=== PATIENT | male | born 1995 | race Caucasian/White ===

== ENCOUNTER 2018-05-12 06:07 | Day surgery (SDC) | payer OTHER ==
[2018-05-11 08:57] VITALS: BMI 24.4
--- NOTE | 2018-05-11 13:37 | HP ---
DATE OF ADMISSION: 05/12/2018 DATE OF SURGERY: 05/12/2018 ADMISSION DIAGNOSIS: Nasal septal deviation, inferior turbinate hypertrophy, chronic sinusitis. HISTORY OF PRESENT ILLNESS: This 23-year-old male has had longstanding nasal and sinus symptoms. He has congestion, drainage, sinus pain and pressure, and has been treated with antibiotics as well as mucolytics and topical medications. He has intermittent yellow drainage, and his headache feels like he was hit over the head with a pipe. Cheek swelling has also been reported. He reports a history of allergies as well. Examination demonstrates deviation of the septum to the left. There is inferior turbinate hypertrophy. CT scan demonstrates chronic sinusitis and deviation of the septum as well as turbinate hypertrophy. He is now admitted for surgery. PAST MEDICAL HISTORY: Primary medical doctor is Dr. Raoul Paniagua. The patient is presently taking fluticasone. He has had previous lower back procedure and underwent general anesthesia without reported problems. ALLERGIES: There are no allergies to medications known. BLEEDING HISTORY: Negative. FAMILY HISTORY: Negative for bleeding or anesthesia problems. REVIEW OF SYSTEMS: Patient reports loud snoring and chronic mouth breathing, and his sense of smell is reduced most of the time. He gets intermittent headaches, and his nose remains dry, stuffy, and uncomfortable. PHYSICAL EXAMINATION: General: Patient is a well-developed male in no distress. HEENT: Head is normal. Eyes are clear. Ears are unremarkable. The nose has deviation of the nasal septum which is somewhat S shaped. Turbinates are enlarged 2+ bilaterally. Middle turbinates are edematous. Middle meatuses are narrowed. CT scan of the paranasal sinuses performed at [facility] on April 29, 2018, shows deviation of the septum part to the right side and part to the left with a spur impacting the left inferior turbinate. Lrew-uk-[id number] hypertrophy is seen in the inferior turbinates. There is mucosal thickening in the maxillary ostia and ethmoid infundibula bilaterally. There is also mucoperiosteal thickening in the ethmoid air cells. There is as well some thickening in the left sphenoethmoid recess and the right. IMPRESSION: 1. Chronic sinusitis. 2. Deviated septum. 3. Inferior turbinate hypertrophy. PLAN: Nasal septoplasty, submucous resection of inferior turbinates, endoscopic sinus surgery to address ethmoid and maxillary sinuses. INFORMED CONSENT: Patient understands the indications, alternatives, and major risks and benefits of proposed surgery. Potential complications including, but not limited to, anesthesia, bleeding, infection, recurrence, hole in septum, changes in the sense of smell, numbness, eye injury, and brain injury were discussed in detail. He understands and accepts these risks and wants to proceed with surgery. Questions were answered fully. CARA PIEDRA M.D. [id number]
[2018-05-12] MEDS ORDERED: COCAINE HCL 4% TOPICAL SOLUTION 4 ML BOTTLE TP ONE ×2 (07:44→08:31)
[2018-05-12] MEDS ORDERED: LIDOCAINE 1%-EPI 1:100,000 30 ML MDV IJ ONE (07:45)
[2018-05-12] MEDS ORDERED: BACITRACIN 15 GM TUBE TOPICAL OINTMENT ONE (07:49)
--- NOTE | 2018-05-12 07:54 | HP ---
History & Physical Update - History History: No Change - Physical Physical: No Change - Assessment Assessment: No Change - Plan Plan: No Change
[2018-05-12] MEDS ORDERED: ROCURONIUM BROMIDE 50 MG/5 ML VIAL ONE (07:55)
[2018-05-12] MEDS ORDERED: MIDAZOLAM HCL 2 MG/2 ML SINGLE DOSE VIAL ONE (07:55)
[2018-05-12] MEDS ORDERED: DEXAMETHASONE SOD PHOSPHATE 4 MG/1 ML VIAL ONE ×2 (07:55→10:24)
[2018-05-12] MEDS ORDERED: PROPOFOL 20 ML ONE ×2 (07:55)
[2018-05-12] MEDS ORDERED: LIDOCAINE 1%/EPI 1:100000 (20 ML MULTI DOSE VIAL) IJ ONE ×3 (08:30→10:00)
[2018-05-12] MEDS ORDERED: DESFLURANE GAS 240 ML BOTTLE IH ONE (09:21)
[2018-05-12] MEDS ORDERED: oxyCODONE HCL 5 MG TABLET PO PRN (10:26)
[2018-05-12] MEDS ORDERED: ONDANSETRON 4 MG/2 ML VIAL IVPUSH PRN (10:26)
[2018-05-12] MEDS ORDERED: LACTATED RINGERS SOLUTION 1,000 ML IV SCH (10:30)
--- NOTE | 2018-05-12 10:38 | OP ---
Operative Note - Note: Operative Date: 05/12/18 ([id number]) Pre-Operative Diagnosis: chronic sinusitis, nasal septal deviation, inferior turbinate hypertrophy Operation: bilateral endoscopic ethmoidectomy, anterior and posterior, bilateral endoscopic maxillary antrostomy, partial resection bilateral middle turbinates, nasal septoplasty, submucus resection of bilateral inferior turbinates, image guidance Findings: chronic sinusitis, middle turbinate hypertrophy, inferior turbinate hypertrophy , septal deviation to left bony and cartilaginous Implants: none Post-Operative Diagnosis: Same as Pre-op Surgeon: Frantz Jovel Anesthesiologist/MACHINE APPLICATOR CEMENTER: Amparo Sam Anesthesia: General Specimens Removed: 1. left middle turbinate and ethmoid tissue, 2. right middle turbinate and ethmoid tissue, 3 nasal septal tissue 4 inferior turbinate tissue Estimated Blood Loss (mls): 40 Drains & Tubes with Location: none Blood Volume Replaced (mls): 0 Fluid Volume Replaced (mls): 1,000 Operative Report Dictated: Yes
[2018-05-12] MEDS ORDERED: ACETAMINOPHEN INJECTION 100 ML IVPB ONE (10:52)
[2018-05-12] MEDS ORDERED: ACETAMINOPHEN 1000 MG/100 ML VIAL (NON FORMULARY) IVPB ONE ×2 (11:15)
--- NOTE | 2018-05-12 12:08 | OP ---
DATE OF OPERATION: 05/12/2018 PREOPERATIVE DIAGNOSES: Chronic sinusitis, nasal septal deviation, inferior turbinate hypertrophy. POSTOPERATIVE DIAGNOSES: Chronic sinusitis, nasal septal deviation, inferior turbinate hypertrophy, middle turbinate hypertrophy. PROCEDURE: Bilateral endoscopic ethmoidectomy, anterior and posterior; bilateral endoscopic maxillary antrostomy; partial resection of bilateral middle turbinates; nasal septoplasty; submucosal resection of bilateral inferior turbinates; imaging guidance. SURGEON: Frantz Jovel MD ANESTHESIOLOGIST: Amparo Pablo CRNA ANESTHESIA: General via endotracheal tube. INDICATIONS: This 23-year-old male has longstanding nasal and sinus symptoms with obstruction, discomfort, mouth breathing, snoring. He has failed to improve with appropriate medical therapy. Examination demonstrates significant deviation of the septum and inferior turbinate hypertrophy. CT scan also shows middle turbinate hypertrophy with partial jonathan bullosa on the right with obstruction as well as ethmoid and maxillary sinusitis. He is now brought to surgery for treatment. FINDINGS: Chronic sinusitis, middle turbinate hypertrophy with obstruction, inferior turbinate hypertrophy with obstruction, significant nasal septal deviation to the left posteriorly bony and cartilaginous. PROCEDURE: Patient was brought to the operating room and placed on the operating table in supine position. General endotracheal anesthesia was induced to a satisfactory level. He was prepped and draped in the usual fashion for surgery. The patient's CT scan data was utilized with the [employer] Image Navigation System. The patient was registered and image guidance was used intermittently throughout the case in order to identify anatomic landmarks and guide dissection. Lidocaine 1% with epinephrine 1:100,000 was infiltrated in the nasal septum. Cocaine 4% was placed on pledgets within the nasal cavities. After an appropriate time, the pledgets were removed. The 0-degree telescope was utilized for nasal endoscopy and nasal septal deviation was identified as well as middle and inferior turbinate hypertrophy. The nasopharynx was clear. There were no polyps or pus visualized. Lidocaine with epinephrine 1:100,000 was infiltrated in the middle turbinates and lateral nasal wall. Additional cocaine 4% was packed within the medial meati. Left paranasal sinus was first addressed. Partial resection of the anterior/inferior portion of the left middle turbinate was performed with the curved endoscopic scissors. The remnant was cauterized. The uncinate process was drawn forward and removed opening the infundibulum. Anterior and posterior ethmoidectomy was performed with the ethmoid forceps and Xomed microdebrider. The mucosa was identified and removed. The lamina papyracea and the fovea ethmoidalis were preserved. After completing ethmoidectomy, the natural ostium was identified and enlarged with backbiting forceps. The 70-degree telescope was used to visualize the maxillary sinus, and there was no irreversible disease. Attention was then turned to the right paranasal sinuses. An anterior/inferior partial resection of the middle turbinate was performed with the endoscopic scissors, and the remnant was cauterized. The uncinate process was run forward. Anterior and posterior ethmoidectomy was performed with the ethmoid forceps and the Xomed microdebrider. Again, the lamina papyracea and the fovea ethmoidalis were preserved. After completion of ethmoidectomy, the middle meatal antrostomy was created with a forward and reverse cutting forceps. The 70-degree telescope was utilized, and the right maxillary sinus had no irreversible lesions. Attention was then turned toward the nasal septum. A right nasal septal incision was created with a 15 blade, and a right mucoperichondrial flap was elevated. The bony/cartilaginous junction was identified and , and bilateral mucoperiosteal flaps were elevated. There was a large bony spur corresponding to the large spur posterior to the left. Obstructing bone was then removed with the Valentin-Quintin forceps. Reduplicated nasal septal cartilage was also removed. Improvement in the position and shape of the septum resulted. A portion of the septum cartilage was then reshaped and flattened with a 15 blade. This was then replaced in the pocket. Interrupted 4-0 chromic was then used to close the nasal septal incision. Some scoring incisions had also been placed in the curved anterior nasal septal cartilage. The inferior turbinates were both enlarged, partially bony and soft tissue. Each was infiltrated with lidocaine 1% epinephrine 1:100,000. The left middle turbinate was incised anteriorly. The inferior turbinate bone was identified and soft tissue elevated from it. Submucosal resection of the left inferior turbinate was performed for several cm. The remaining soft tissue was then cauterized internally. The incision was closed. Some external cauterization was also performed after outfracturing the posterior portion. Finally the right inferior turbinate was incised. The inferior turbinate bone was identified and soft tissue dissected from it and a portion removed of the bone. Submucosal cauterization was performed as well as some external cauterization. The incision was closed with 4-0 chromic. Final inspection demonstrated improved nasal airways inferiorly. The middle turbinates were dry, and the ethmoid and maxillary sinuses were opened. Standard NasoPore dressings were placed within the middle meati/ethmoid beds and against the middle turbinate remnant. Folded Telfa gauze was then placed inferiorly in each nasal cavity after coating with antibiotic ointment and joined anteriorly with a silk suture. The oropharynx was suctioned. The stomach was suctioned of small, slightly bloody secretions. Patient tolerated the procedure well. He was then awakened from general anesthesia and transferred to the PACU in stable condition. Estimated blood loss was 40 mL. He received crystalloid during the procedure. Specimens to Pathology include left middle turbinate and ethmoid tissue, right middle turbinate and ethmoid tissue, nasal septal tissue, and inferior turbinate tissue. There were no complications. FRANTZ JOVEL M.D. [id number]
[2018-05-12] MEDS ORDERED: oxyCODONE HCL 5 MG TABLET PO ONE (12:10)
[2018-05-12 13:55] VITALS: BP 132/60; PULSE 62; TEMP 97.9
--- NOTE | 2018-05-17 16:55 | PATH ---
Surgical Pathology Report Patient Name: CARA AGRAWAL [facility]. Rec. #: [id number] /Age/Gender: 1995 (Age: 23) / M Account: [id number] Location: [facility] Taken: 05/12/2018 Received: 05/12/2018 Reported: 05/17/2018 Physicians: Cara Jovel M.D. Specimen(s) Received A: TURBINATE, LEFT MIDDLE AND ETHMOID TISSUE B: TURBINATE, RIGHT MIDDLE AND ETHMOID TISSUE C: SEPTUM D: TURBINATE, INFERIOR Clinical History Hypertrophic turbinate, deviated septum, ethmoid, chronic sinusitis Final Diagnosis A. LEFT MIDDLE TURBINATE AND ETHMOID TISSUE, EXCISION: RESPIRATORY MUCOSA AND BONE SHOWING FIBROSIS, INCREASED VASCULARITY WITH VASCULAR CONGESTION, AND MILD CHRONIC SINUSITIS. B. RIGHT MIDDLE TURBINATE AND ETHMOID TISSUE, EXCISION: RESPIRATORY MUCOSA AND BONE SHOWING FIBROSIS, INCREASED VASCULARITY WITH VASCULAR CONGESTION, AND CHRONIC SINUSITIS. C. SEPTUM, EXCISION: BONE AND CARTILAGE, CONSISTENT WITH SEPTUM. SEPARATE MUCOSAL TISSUE WITH CHRONIC INFLAMMATION AND FIBROSIS. D. INFERIOR TURBINATE TISSUE, EXCISION: BONE SHOWING DILATED VESSEL WITH CONGESTION. SEPARATE MUCOSAL TISSUE WITH SINUSITIS AND FIBROSIS. Electronically Signed Petra Schreiber M.D. Gross Description A. Received in formalin labeled "left middle turbinate and ethmoid tissue," is a 1.8 x 1.2 x 0.3 cm aggregate of wyman fragments of cartilage and possible bone. The specimen is entirely submitted in one cassette, following decalcification. B. Received in formalin labeled "right middle turbinate and ethmoid tissue," is a 1.3 x 1.0 x 0.3 cm aggregate of wyman fragments of cartilage and possible bone. The specimen is entirely submitted in one cassette, following decalcification. C. Received in formalin labeled "septum tissue," is a 2.5 x 1.6 x 0.3 cm aggregate of wyman fragments of bone and cartilage. A primary care sales representative portion is submitted in one cassette, following decalcification. D. Received in formalin labeled "inferior turbinate tissue," is a 1.0 x 1.0 x 0.2 cm aggregate of wyman fragments of cartilage and possible bone. The specimen is entirely submitted in one cassette, following decalcification. 05/13/201805/13/2018
== END 2018-05-12 13:45 | disposition home or self-care (01) ==
LOC: JASU-SURG 06:07
PROVIDERS: ATTEND Otolaryngology
PROC: 09TV8ZZ Resection of Left Ethmoid Sinus, Via Natural or Artificial Opening Endoscopic (ICD-10-PCS; 2018-05-12)
PROC: 09TU8ZZ Resection of Right Ethmoid Sinus, Via Natural or Artificial Opening Endoscopic (ICD-10-PCS; 2018-05-12)
PROC: 8E09XBZ Computer Assisted Procedure of Head and Neck Region (ICD-10-PCS; 2018-05-12)
PROC: 09TL8ZZ Resection of Nasal Turbinate, Via Natural or Artificial Opening Endoscopic (ICD-10-PCS; 2018-05-12)
PROC: 8E09XBZ Computer Assisted Procedure of Head and Neck Region (ICD-10-PCS; principal; 2018-05-12 08:00)
DX: J32.9 Chronic sinusitis, unspecified (principal); J34.2 Deviated nasal septum; J34.3 Hypertrophy of nasal turbinates
CPT/HCPCS: 88302-TC; 88304-TC; 88311-TC; 94760; J0131